=== PATIENT | male | born 1995 | race African-American/Black ===

== ENCOUNTER 2017-03-18 13:47 | Emergency (ER) | payer OTHER ==
[~2017-03-18] VITALS: Ht 188 cm; Wt 77.3 kg
[2017-03-18 13:48] VITALS: BP 115/63
[2017-03-18] MEDS ORDERED: IBUPROFEN 600 MG TAB PO ONE (14:45)
--- NOTE | 2017-03-18 14:50 | REP ---
LEFT WRIST, FOUR VIEWS: There is no evidence of an acute fracture, dislocation or intrinsic bone disease. IMPRESSION: No fracture or dislocation. Signed by Meliton Mathur MD 03/18/2017 03:18 P
== END 2017-03-18 15:06 | disposition home or self-care (01) ==
LOC: M ED 13:47
DX: S63.502A Unspecified sprain of left wrist, initial encounter (principal); V23.4XXA Motorcycle driver injured in collision with car, pick-up truck or van in traffic accident, initial encounter; Y92.410 Unspecified street and highway as the place of occurrence of the external cause; Y93.89 Activity, other specified; Y99.9 Unspecified external cause status